=== PATIENT | male | born 1965 | race Caucasian/White ===

== ENCOUNTER 2023-10-31 16:00 | Emergency (ER) | payer OTHER ==
[~2023-10-31] VITALS: Ht 167.6 cm; Wt 73.0 kg
[2023-10-31 16:06] VITALS: O2SAT 95
[2023-10-31] MEDS: ONDANSETRON HCL 4MG/2ML INJ IV STA (16:25)
[2023-10-31 16:45] LABS: DIFFERENTIAL COMMENT 0; EOSINOPHILS % 0.8 % (0.0-5.0); HEMATOCRIT. 21.6 % (42.0-52.0); HEMOGLOBIN. 7.6 g/dL (14.0-18.0); MEAN CORPUSCULAR HEMOGLOBIN 37.9 pg (28.0-32.0); MEAN CORPUSCULAR HGB CONC 35.4 g/dL (31.0-37.0); MEAN CORPUSCULAR VOLUME 107.2 fL (80.0-94.0); MEAN PLATELET VOLUME 8.7 fl (7.4-10.4); MONOCYTES % 8.1 % (2.0-8.0); NEUTROPHILS % 68.1 % (40.0-76.0); PLATELET 109 x1000/uL (130-400); RED BLOOD CELL COUNT 2.01 mill/uL (4.7-6.1); RED CELL DISTRIBUTION WIDTH 17.1 % (11.6-14.6); WHITE BLOOD COUNT 6.3 x1000/uL (4.5-11.0)
[2023-10-31 16:52] LABS: CHLORIDE 108 mEq/L (98-107); SODIUM 129 mEq/L (136-145)
[2023-10-31 16:53] LABS: CALCIUM 7.6 mg/dL (8.7-10.4); CARBON DIOXIDE 13 mEq/L (21-32)
[2023-10-31 16:58] LABS: CREATININE 1.8 mg/dL (0.6-1.3); GLUCOSE 141 mg/dL (70-105); UREA NITROGEN BLOOD 33 mg/dL (9-23)
[2023-10-31 16:59] LABS: TROPONIN I HIGH SENSITIVITY 35 ng/L (3.0-53)
[2023-10-31 17:00] LABS: ALANINE AMINOTRANSFERASE 67 IU/L (10-49); ALBUMIN 2.1 g/dL (3.2-4.8); ASPARTATE AMINOTRANSFERASE 104 IU/L (<34); BILIRUBIN DIRECT 4.7 mg/dL (<=3.0)
[2023-10-31 17:01] LABS: PROTEIN TOTAL 7.5 g/dL (6.0-8.3)
[2023-10-31 17:03] LABS: AMMONIA 124 uMol/L (<32); ETHANOL BLOOD < 10 mg/dL (<10)
[2023-10-31 17:04] LABS: INR 1.3; PARTIAL THROMBOPLASTIN TIME 58.9 sec (23.4-31.0)
[2023-10-31] MEDS: MORPHINE SULFATE 4 MG/ML INJ (FOR IV/IM USE) IV STA (17:27)
[2023-10-31] MEDS: SODIUM CHLORIDE 0.9% 1,000 ML IV ONE (17:28)
[2023-10-31] MEDS: CEFTRIAXONE 2GM/50ML 50 ML IV ONE (19:27)
[2023-10-31] MEDS: LACTULOSE 20G/30ML UDC PO ONE (22:05)
[2023-11-01 07:20] VITALS: BP 124/68; PULSE 90; RESP 14; TEMP 36.78072; O2SAT 95
== END 2023-11-01 10:15 | disposition left against medical advice (07) ==
LOC: ER 16:00 → UNDOADMIN 21:56 → 5WST 21:56 → EDBEDREQTM 22:08 → EDBEDREQ 22:08 → 5WST 11-01 04:42 → UNDOADMIN 11-01 04:42 → UNDODISIN 11-01 10:15 → 5WST 11-01 10:15
DX: I21.4 Non-ST elevation (NSTEMI) myocardial infarction (principal); R18.8 Other ascites; N17.9 Acute kidney failure, unspecified; E87.1 Hypo-osmolality and hyponatremia; K74.60 Unspecified cirrhosis of liver; K80.20 Calculus of gallbladder without cholecystitis without obstruction; D64.9 Anemia, unspecified; E11.9 Type 2 diabetes mellitus without complications; E78.00 Pure hypercholesterolemia, unspecified
CPT/HCPCS: 80076; 80048; 80320; 82140; 83880; 83690; 85025; 85610; 85730; 84484; 74176; 76700; 96361; 96365; 96366; 96375; 99291; 36415; J0696; J2405; J2270; J7030; G0480